=== PATIENT | male | born 1955 | race Caucasian/White ===

== ENCOUNTER → 2018-10-24 | Outpatient (REF) ==
[~2018-10-24] MED LIST: AUGMENTIN875TAB PO; FLONASE NASAL50 MCG; SPIRIVA HANDIHALER IN
[2018-10-24 10:06] LABS: CHOLESTEROL HDL RATIO 4.1 (<4.4 (CALC))
== END | disposition home or self-care (01) | DRG 951 ==
LOC: LAB 07:45
PROVIDERS: ATTEND Family Medicine
DX: Z02.6 Encounter for examination for insurance purposes (principal)

== ENCOUNTER 2019-09-17 | Day surgery (SDC) | payer OTHER ==
[~2019-09-17] MED LIST changes: +PRAVASTATIN SOD20 MG PO; +[UNRECOGNIZED DRUG - CODE] PO
[2019-09-17] MEDS ORDERED: PERCOCET 5/325M1 TAB PO (09:05)
== END 2019-09-17 10:00 | disposition home or self-care (01) | DRG 349 ==
PROC: 06BY3ZC Excision of Hemorrhoidal Plexus, Percutaneous Approach (ICD-10-PCS; principal; 2019-09-17)
DX: K64.2 Third degree hemorrhoids (principal)
CPT/HCPCS: C9290; J0131